=== PATIENT | male | born 1955 | race Caucasian/White ===

== ENCOUNTER → 2017-01-03 | Outpatient (CLI) | payer BC, OTHER ==
[~2017-01-03] VITALS: Ht 170.2 cm; Wt 68.0 kg
[~2017-01-03] MED LIST: ALEVE220 MG PO; ATENOLOL 100MG100 MG PO; ATENOLOL 50 MG50 M1 PO; ATENOLOL 50MG T50 M1 PO; CIPRO500 MG PO; CLARITIN10 M2 PO; FLAX SEED OIL1000 MG PO; HYDROCODONE-AP1 EAC6 PO; IBUPROFEN 200200 M1 PO; IBUPROFEN 800800 M1 PO; MULTIVITAMINS PO; MULTIVITAMINS1 EAC7 PO; NABUMETONE 750750 M1 PO; NORCO 5-325 TA1 EACH PO; PERCOCET 7.5-31 EACH PO; WELLBUTRIN 100100 MG PO; WELLBUTRIN XL150 MG PO; ZOFRAN ODT4 MG PO; ZOFRAN4 MG PO
--- NOTE | ~2017-01-03 | HPC ---
[facility] [address] [place] [address] PAIN MANAGEMENT CONSULTATION Name: RAVIN ANDRES Room #: REG MELITON Goss#: [id number] Admission: 01/03/17 Attend Phys: Clifton Figueredo DO Discharge: Date of : 54 Report #: [id number] THIS REPORT FOR: //name// CC: Amanda Figueredo The patient is a very pleasant 61-year-old gentleman well known to pain clinic, being treated for lumbar radiculopathy status post decompressive laminectomy, ongoing radicular pain requiring complex medication management. He has done well with occasional epidural injections, left L5-S1 transforaminal epidural injection prior visit (11/15/2016) afforded 35% relief, the pain recurred. Prior transforaminal injections had afforded much better relief. With the patient starting to fail further interventional therapy, we talked about therapeutic options moving forward. He has had significant decompression at L5-S1. MRI from 2012 notes reversal lordotic curve. Posterior bone graft material identified along the posterior at L3-L4, some bulging disk at multiple levels, neural foraminal narrowing predominantly in the left affecting the left L4 nerve root, remote compression deformity at L3 and no acute compression fractures noted . Today, he notes pain, primarily low back, left leg, exacerbated with standing and walking. Stands in any position 45 minutes too long, pain becomes problematic. PHYSICAL EXAMINATION: Shows 62-year-old gentleman appearing younger than stated age. BMI is 23.5 kilograms per meter squared. Vital signs are stable. He uses his Percocet fairly rarely, but he is loathe. He did use higher doses. He has been taking actually cod liver tablet p.r.n. and now he is up to maybe 1 tablet a day. We talked about therapeutic options including spinal cord stimulator which patient is very enthusiastic with about moving forward with. He had read some promotional information on stimulators and local publications. We talked at length today about spinal cord stimulator as possible therapeutic option for people who has failed 1 back surgery and who have ongoing neuropathic pain components. I have gave him both printed and video literature regarding this therapeutic modality. The patient has reasonable strength in lower legs, no specific traumatic weakness. I think he would be an excellent candidate for spinal cord stimulator. Given that pain remains problematic; however, we elected to proceed today with a caudal epidural injection under fluoroscopy. If this does not afford adequate relief, our last option will be spinal cord stimulator. The patient was given contact information for psychological evaluation as required by most third libertarian payers. ASSESSMENT: Symptomatic lumbar radiculopathy status post decompressive laminectomy, fusion with ongoing neuropathic pain, lumbar radicular symptoms. He has had excellent relief following transforaminal epidural injections, starting to lose efficacy. We will trial 1 caudal injection today. If this [address] [address] PAIN MANAGEMENT CONSULTATION Name: MCKENNARAVIN Lizeth Room #: ANDI Goss#: [id number] Admission: 01/03/17 Attend Phys: Clifton Figueredo DO Discharge: Date of : 54 Report #: [id number] does not afford adequate relief, we will move forward with spinal cord stimulator trial. He is loathe to take higher dose of opiates. He takes 7.5/325 Percocet tablet, usually taking about half a tablet b.i.d. to t.i.d. PROCEDURE: Symptomatic lumbar radiculopathy by caudal approach. DESCRIPTION OF PROCEDURE: After written informed consent was obtained, the patient was taken to the fluoroscopy suite and placed in prone position. After sterile prep and drape, skin wheal was raised. A 22-gauge stylet needle was placed to the sacral hiatus in the caudal epidural space. Negative aspiration was accomplished. A 1 mL of Omnipaque was injected, which showed spread in the sacral caudal space. This was followed with 80 mg triamcinolone plus 4 mL of 0.5% preservative-free lidocaine. Progreso removed. The area was cleansed, Band-Aids applied. The patient monitored for an appropriate period of time, discharged in good and stable condition. By: [id number] Clifton Figueredo DO /nt
[2017-01-03 10:45] VITALS: BP 123/80
== END | disposition home or self-care (01) ==
LOC: PAIN 07:37
DX: M54.16 Radiculopathy, lumbar region (principal); G62.9 Polyneuropathy, unspecified

== ENCOUNTER → 2017-02-24 | Outpatient (CLI) | payer BC, OTHER ==
[~2017-02-24] VITALS: Ht 170.2 cm; Wt 66.0 kg
--- NOTE | ~2017-02-24 | HPC ---
[facility] [place] [address] PAIN MANAGEMENT CONSULTATION Name: RAVIN ANDRES Room #: REG [facility] Ana Paula#: [id number] Admission: 02/24/17 Attend Phys: Clifton Figueredo DO Discharge: Date of : 54 Report #: [id number] THIS REPORT FOR: //name// CC: Clifton Figueredo DATE OF SERVICE: 02/24/2017 The patient is a 62-year-old gentleman being treated for symptomatic lumbar radiculopathy, status post lumbar decompressive laminectomy with component of axial back pain. The patient has had some incremental relief with injections. The left L5-S1 transforaminal epidural injection 11/15/2016 afforded about 35% relief. I trialed 1 caudal injection at last visit with again about 30% overall improvement. The patient continues to take Percocet fairly rarely, literally 1/4 of a 7.5 mg tablet 2-3 times a day. He has been authorized for spinal cord stimulator trial, we are working to get a mutually convenient date. Returns to the pain clinic today. Again, noting the prior intervention really only afforded about 30% relief. Pain is pretty good at present about 2/10, but if he sits for too long greater than 30-45 minutes, pain becomes quite problematic, radiating down the left leg and requires him to get up and move around. 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 Blood pressure is 151/87, pulse 74, respirations are 14, BMI is 22.8 kilograms per meter squared. Alert and oriented to person, place and time, judged to be a reasonable historian. Rises from chair using armrest. Modestly antalgic gait favoring the left leg. Positive straight leg raise on the left. Fortunately, strength is generally preserved. ASSESSMENT: Symptomatic lumbar radiculopathy status post decompressive laminectomy requiring complex medication management of axial back pain. RECOMMENDATIONS: Renew Percocet 7.5/325. Again, fairly rare use up to 1/4 of a tablet p.r.n. pain. Taken the liberty of writing for 75 tablets, which typically lasts about 90 days. Again, follow up at earliest possible day for spinal cord stimulator trial. Will trial Bloominous device; high frequency and MRI compatible. By: [id number] Clifton Figueredo DO /nt
[2017-02-24 09:47] VITALS: BP 151/87
== END | disposition home or self-care (01) ==
LOC: PAIN 02-21 15:28
DX: M54.16 Radiculopathy, lumbar region (principal); I10 Essential (primary) hypertension; G45.9 Transient cerebral ischemic attack, unspecified; F17.200 Nicotine dependence, unspecified, uncomplicated; Z98.890 Other specified postprocedural states; Z79.899 Other long term (current) drug therapy; Z88.8 Allergy status to other drugs, medicaments and biological substances

== ENCOUNTER → 2017-04-14 | Outpatient (CLI) | payer BC, OTHER ==
[~2017-04-14] VITALS: Ht 170.2 cm; Wt 64.9 kg
[~2017-04-14] MED LIST changes: +CLARITIN10 MG PO; +FLOMAX0.4 MG PO; +MUCINEX TA600 MG/TA2 PO
--- NOTE | ~2017-04-14 | HPC ---
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 He is not a further surgical candidate at this point. We had discussed spinal cord stimulator as a possible therapeutic modality to help manage symptoms and improve functional ability. The patient presents to pain clinic today for spinal cord stimulator trial. After written informed consent was obtained including risk of spinal cord trauma, increased pain, weakness, bleeding, and infection, the patient wished to proceed. Intravenous access was established. The patient was given 1 gram of Ancef, taken to the fluoroscopy suite, placed in prone position with appropriate abdominal bolstering. Wide surgical prep and drape was accomplished. Skin wheal with Xylocaine was raised. A #11 scalpel was used to make a stab incision. A 14-gauge epidural Tuohy needle was placed into the interspinous ligament at T12-L1. Stylet was removed, saline filled glass syringe was attached with continuous plunger pressure. On biplanar fluoroscopy, the needle was easily advanced to the epidural space. Negative aspiration for cerebrospinal fluid or blood. A 16 contact trial lead, 50 cm was advanced in the posterior aspect of the epidural canal to the top of T7 vertebral body. Attention was then directed at the left side, again a skin wheal with Xylocaine was raised. A #11 scalpel was used to make a stab incision and a 14-gauge epidural Tuohy needle was placed into the interspinous ligament at T12-L1. With identical process, second lead was advanced to the top of T7 parallel to the first lead. AP and lateral projections showed good needle placement. With fluoroscopy, observing the lead tips, the stylet and needles were removed. Tips remained intact. The leads were secured using mastic and Steri-Strips. Wide bolster dressing was accomplished. Care was taken as the patient has a contact skin allergy to have least amount of adhesive on his skin. The patient was allowed to ambulate to the recovery room, discussed stimulation patterns with the [employer] rep. We will plan on moving forward with lead evaluation in 1 week. He has contact information for the pain clinic physician mobile web application developer if he has any change in symptoms, weakness, fever, chills, drainage at the insertion site. If the patient has improved functional status, we will move forward with MRI compatible spinal cord stimulator with paddle lead placement. [address] [address] PAIN MANAGEMENT CONSULTATION Name: MCKENNARAVINNAOMI CLEARY Room #: REG MELITON Goss#: [id number] Admission: 04/14/17 Attend Phys: Clifton Figueredo DO Discharge: Date of : 54 Report #: [id number] The patient was discharged in good and stable condition. <ELECTRONICALLY SIGNED> By: Clifton Figueredo DO 04/14/1717 1 0849 Clifton Figueredo DO /nt
[2017-04-14 07:20] VITALS: BP 128/86
== END | disposition home or self-care (01) ==
LOC: PAIN 06:40
DX: M54.16 Radiculopathy, lumbar region (principal); G89.29 Other chronic pain; I10 Essential (primary) hypertension; F17.200 Nicotine dependence, unspecified, uncomplicated; Z86.73 Personal history of transient ischemic attack (TIA), and cerebral infarction without residual deficits; Z88.8 Allergy status to other drugs, medicaments and biological substances; Z98.890 Other specified postprocedural states; Z79.899 Other long term (current) drug therapy

== ENCOUNTER → 2017-04-21 | Outpatient (CLI) | payer BC, OTHER ==
[~2017-04-21] VITALS: Ht 170.2 cm; Wt 67.0 kg
--- NOTE | ~2017-04-21 | HPC ---
[facility] [address] [place] [address] PAIN MANAGEMENT CONSULTATION Name: RAVIN ANDRES Room #: REG MELITON Smith.#: [id number] Admission: 04/21/17 Attend Phys: Delroy Hernandez MD Discharge: Date of : 54 Report #: [id number] THIS REPORT FOR: //name// CC: Adam Ferris DO DATE OF SERVICE: 04/21/2017 The patient returns to pain clinic today in followup for his spinal cord stimulator trial. Two leads were placed by Dr. Clifton Figueredo on 04/14/2017. His trial was performed with the use of a Granular Infinion 16 compact trial leads. The procedure went well with good lead placement location. The patient reports today that he has had 85-90% reductions in pain overall during the week. His activities have been improved by 90%. He has been able to play with his grandchildren, spend more time on his feet and do other household activities with little to no pain. On the spectrum of response, I would say that this is an excellent trial, which was sustained throughout the entire week. The patient is anxious to proceed with a permanent implant and we have discussed a referral to Dr. Goodrich for placement of permanent lead and pulse generator. A referral has been made to his office and the radiographs as well as Dr. Figueredo's dictations plus our evaluation from today will be sent to Dr. Goodrich's office, so that they can schedule him for an implant in the upcoming weeks. The patient had a number of questions, which were answered about the trial as well as the upcoming implant. Further surgical discussion, we will defer to Dr. Goodrich. The leads were removed without difficulty and site looks good with no evidence of infection, although there is a little bit of tape excoriation just lateral to the left lead. Skin was cleaned. Band-Aid was placed over the open skin area and he was discharged from the clinic with Dr. Goodrich's contact information. By: [id number] Delroy Hernandez MD /nt
[2017-04-21 10:46] VITALS: BP 142/87
== END | disposition home or self-care (01) ==
LOC: PAIN 07:23
DX: Z46.2 Encounter for fitting and adjustment of other devices related to nervous system and special senses (principal); G89.29 Other chronic pain; M54.5 Low back pain; I10 Essential (primary) hypertension; F17.210 Nicotine dependence, cigarettes, uncomplicated; Z86.73 Personal history of transient ischemic attack (TIA), and cerebral infarction without residual deficits; Z88.8 Allergy status to other drugs, medicaments and biological substances; Z79.899 Other long term (current) drug therapy; Z98.890 Other specified postprocedural states

== ENCOUNTER → 2017-05-25 | Outpatient (CLI) | payer BC, OTHER ==
[~2017-05-25] VITALS: Ht 170.2 cm; Wt 65.0 kg
--- NOTE | ~2017-05-25 | HPC ---
[facility] [place] [address] PAIN MANAGEMENT CONSULTATION Name: RAVIN ANDRES Room #: REG [facility] SarahRadha#: [id number] Admission: 05/25/17 Attend Phys: Chris Salazar MD Discharge: Date of : 54 Report #: [id number] THIS REPORT FOR: //name// CC: Chris Anna DO DATE OF SERVICE: 05/25/2017 FOLLOWUP COMPLAINT: Here for medication renewal. 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 Has a history of decompressed laminectomies and continues to have neuropathic pain. He is taking oxycodone 7.5 mg 1 p.o. t.i.d. and has returned for renewal of this medication. PHYSICAL EXAMINATION: Blood pressure 124/77, pulse 70, respiratory rate 16, room air saturation 97%. Height 5 feet 7 inches, weight 143 pounds, BMI is 22. The patient has not fallen since we saw him last. The patient rates his pain as a 4/10. He notes some increased discomfort when he sits for too long. IMPRESSION: History of lumbar radiculopathy status post laminectomy with neuropathic pain. RECOMMENDATION: We will renew the patient's medications. A script for Percocet 7.5/325 has been provided. The patient will follow up with Dr. Figueredo in the near future. We would like to thank you for letting us participate in his care. We hope he continues to improve. By: [id number] Chris Salazar MD /CHARLIE
[2017-05-25 09:49] VITALS: BP 124/77
== END | disposition home or self-care (01) ==
LOC: PAIN 05-19 07:35
DX: M54.16 Radiculopathy, lumbar region (principal); Z98.890 Other specified postprocedural states; Z79.899 Other long term (current) drug therapy; F17.200 Nicotine dependence, unspecified, uncomplicated

== ENCOUNTER → 2017-09-12 | Outpatient (CLI) | payer BC, OTHER ==
[~2017-09-12] VITALS: Ht 170.2 cm; Wt 64.9 kg
[~2017-09-12] MED LIST changes: +ETODOLAC 400 M400 M1 PO; +PERCOCET PO
--- NOTE | ~2017-09-12 | HPC ---
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 He uses hydrocodone 5/325 infrequently, his last Percocet 5/325 prescription for 90 tablets was in July. He still has a few tablets left. At last visit, we had had the [employer] customer solutions representative come and make some changes on his stimulator, which was ultimately implanted on 05/22/2017. The patient returns today noting pain is 2 on a VAS. He is using his stimulator daily, but not 100% of the time. He charges is it every 2-3 days. He notes his functional status is dramatically improved with the stimulator. He is using Percocet on a nondaily basis. He rates his subjective pain score 2 on a VAS. Notes pain is primarily low back, left leg, sharp, aching; exacerbated with standing and walking; again gets good relief with repositioning changing the stimulator and rarely taking Percocet. PHYSICAL EXAMINATION: Shows a pleasant 62-year-old gentleman, BMI is 22.4 kilograms per meter squared. Vital signs stable. Rises from chair easily. Gait is tandem. Lower extremity strength is preserved. Lumbar flexion is significantly limited to about 60-70 degrees, though the patient states this is chronic since he was a teenager. ASSESSMENT: Symptomatic lumbar radiculopathy status post decompressive laminectomy, axial back pain requiring high risk complex medication management. RECOMMENDATIONS: We reviewed the fact that opiate medications are being used to provide analgesia adequate to support activities of daily living, not attempting to achieve a specific pain score on the 0-10 Visual Analog Scale. The current opiate medications are providing sufficient analgesia to allow the patient to participate in activities of daily living. The patient is not exhibiting any aberrant behavior suggestive of drug diversion. The patient is not having any adverse reactions to medications. The patient is not suffering from daytime somnolence or mental acuity changes. The patient is managing opiate-induced constipation with appropriate zjbj-yti-jygusek agents and dietary considerations. The patient was counseled on concern for caution with operating a motor vehicle while using opiate medications. A physical exam was performed and the patient's functional status was evaluated. All patients with back pain were advised against the bed rest greater than 4 days and were advised to return to normal activities. Pain score assessment was noted and the treatment plan was reviewed with the patient. All current [address] [address] PAIN MANAGEMENT CONSULTATION Name: MCEKNNARAVIN VELAZQUEZERY Room #: REG [facility] Ana Paula#: [id number] Admission: 09/12/17 Attend Phys: Clifton Figueredo DO Discharge: Date of : 53 Report #: [id number] medications, both prescribed and OTC were reviewed and reconciled on the electronic medical record. Tobacco screening was accomplished and smoking cessation was advised when indicated. BMI was noted and diet/exercise modification was recommended for all patients following outside normal parameters. I reviewed with the patient today their responsibilities to safeguard prescription medications, reviewed their responsibility to utilize medications only as prescribed by the physician. They are to seek and receive pain medications only from 1 physician group ( [facility]). They are to use 1 pharmacy and keep the clinic informed if they change pharmacies. Their responsibilities include making followup visits in a timely fashion and to avoid abrupt discontinuation of medication usage. Their responsibilities further include bringing their medications (bottles from the pharmacy with residual pills) to the visit for possible confirmation of pill counts and the patient understands it is their responsibility to submit to random drug screens to ensure both that the medications prescribed are present, and that no other controlled substances are present. All prescriptions provided today were generated electronically. Renew [employer] , dispense 75 tablets. The patient uses this on a nondaily basis. Continue spinal cord stimulator usage. Follow up simply as needed. <ELECTRONICALLY SIGNED> By: Clifton Figueredo DO 09/15/17 1022 [id number] Clifton Figueredo DO /nt
[2017-09-12 13:28] VITALS: BP 130/77
== END ==
LOC: PAIN 06:56
DX: M54.16 Radiculopathy, lumbar region (principal); M54.89 Other dorsalgia; Z98.890 Other specified postprocedural states; Z79.899 Other long term (current) drug therapy

== ENCOUNTER → 2017-10-17 | Outpatient (CLI) | payer BC, OTHER ==
[~2017-10-17] VITALS: Ht 170.2 cm; Wt 64.0 kg
--- NOTE | ~2017-10-17 | HPC ---
[facility] [place] [address] PAIN MANAGEMENT CONSULTATION Name: MCKENNARAVIN CLEARY Room #: REG [facility] Ana Paula#: [id number] Admission: 10/17/17 Attend Phys: Clifton Figueredo DO Discharge: Date of : 54 Report #: [id number] THIS REPORT FOR: //name// CC: Clifton Figueredo DATE OF SERVICE: 10/17/2017 HISTORY OF PRESENT ILLNESS: The patient is a 62-year-old gentleman, prior seen in the pain clinic on 09/12/2017 for symptomatic lumbar radiculopathy status post decompressive laminectomy, axial back pain requiring complex medication management. Spinal cord stimulator ([employer]) was evaluated at last visit. Function is good. In the interval since we last saw him on 09/12/2017, the patient had seen an orthopedic surgeon. Hip x-ray showed no obvious arthritic changes, though he did have some fluid in the trochanteric bursa, was given injections and physical therapy and started on etodolac 400 mg b.i.d. Returns to the pain clinic today noting that overall symptoms are generally improved, specifically with the etodolac. Rates his pain fairly nominal of 1 on a VAS, although he notes that he is scheduled to stop the etodolac next week. I had given him a prescription for Percocet 5/325, limit 75 tablets, 09/12/2017. He is using 1 tablet 3-4 times a week. The patient notes pain is primarily low back, left greater than right hip and leg, though again fairly nominal at present. He states he actually feels better than he has in some time. PHYSICAL EXAMINATION: GENERAL: Shows a 62-year-old gentleman, BMI is noted on EMR; does not fall outside of recommended parameters. VITAL SIGNS: Stable. MUSCULOSKELETAL: Rises from chair fairly easily. Gait is tandem. Diffuse tenderness across the low back and hips, though radicular symptoms are fairly nominal at this time. Lower extremity strength is preserved. Today, we did review an opiate consent to treat contract. I pointed out that as the patient starts to wean off etodolac, he may have some increase in pain. I did renew Percocet 5/325, limit 75 tablets; he can take 1 tablet up to 3 or 4 times a day, though typically again he is taking 3 or 4 tablets in a week. Suggested that as he weans off etodolac and if symptoms become more problematic that he talk to his superintendent general physician and request renewal of the etodolac. Did suggest, however, that given a general risk with NSAID type agents and cardiac risk factors, he may consider taking the etodolac on a nondaily basis and continue to use the Percocet simply on a p.r.n. basis as needed for breakthrough pain. We reviewed the opiate consent to treat contract. [address] [address] PAIN MANAGEMENT CONSULTATION Name: MCKENNARAVIN CLEARY Room #: REG MELITON Goss#: [id number] Admission: 10/17/17 Attend Phys: Clifton Figueredo DO Discharge: Date of : 53 Report #: [id number] We reviewed the fact that opiate medications are being used to provide analgesia adequate to support activities of daily living, not attempting to achieve a specific pain score on the 0-10 Visual Analog Scale. The current opiate medications are providing sufficient analgesia to allow the patient to participate in activities of daily living. The patient is not exhibiting any aberrant behavior suggestive of drug diversion. The patient is not having any adverse reactions to medications. The patient is not suffering from daytime somnolence or mental acuity changes. The patient is managing opiate-induced constipation with appropriate clfa-sct-wegzqfw agents and dietary considerations. The patient was counseled on concern for caution with operating a motor vehicle while using opiate medications. A physical exam was performed and the patient's functional status was evaluated. All patients with back pain were advised against the bed rest greater than 4 days and were advised to return to normal activities. Pain score assessment was noted and the treatment plan was reviewed with the patient. All current medications, both prescribed and OTC were reviewed and reconciled on the electronic medical record. Tobacco screening was accomplished and smoking cessation was advised when indicated. BMI was noted and diet/exercise modification was recommended for all patients following outside normal parameters. I reviewed with the patient today their responsibilities to safeguard prescription medications, reviewed their responsibility to utilize medications only as prescribed by the physician. They are to seek and receive pain medications only from 1 physician group ( [facility]). They are to use 1 pharmacy and keep the clinic informed if they change pharmacies. Their responsibilities include making followup visits in a timely fashion and to avoid abrupt discontinuation of medication usage. Their responsibilities further include bringing their medications (bottles from the pharmacy with residual pills) to the visit for possible confirmation of pill counts and the patient understands it is their responsibility to submit to random drug screens to ensure both that the medications prescribed are present, and that no other controlled substances are present. All prescriptions provided today were generated electronically. ASSESSMENT: Symptomatic lumbar radiculopathy status post decompressive laminectomy, axial back pain, stable on modest dose opiate analgesic. <ELECTRONICALLY SIGNED> By: Clifton Figueredo DO 10/19/17 0724 [id number] Clifton Figueredo DO /jose
[2017-10-17 13:20] VITALS: BP 163/71
== END ==
LOC: PAIN 06:53
DX: M54.16 Radiculopathy, lumbar region (principal); Z98.890 Other specified postprocedural states; F11.90 Opioid use, unspecified, uncomplicated

== ENCOUNTER → 2017-12-05 | Outpatient (CLI) | payer BC, OTHER ==
[~2017-12-05] VITALS: Ht 170.2 cm; Wt 65.8 kg
--- NOTE | ~2017-12-05 | HPC ---
[facility] [place] [address] PAIN MANAGEMENT CONSULTATION Name: RAVIN ANDRES Room #: REG [facility] Ana Paula#: [id number] Admission: 12/05/17 Attend Phys: Clifton Figueredo DO Discharge: Date of : 53 Report #: [id number] THIS REPORT FOR: //name// CC: Clifton Figueredo The patient is a 62-year-old gentleman being treated for lumbar radiculopathy status post decompressive laminectomy, axial back pain, requiring complex medication management. Last seen in pain clinic on 10/17/2017. We progressed to spinal cord stimulator trial, this was successful and he had an implantation of a [employer] stimulator in July. He returns to pain clinic today. He is doing dramatically better. He has had 3 failed back surgeries, ongoing axial back and left radicular pain, though he notes his pain is a 1 on a VAS. He is taking oxycodone on a nondaily basis, Percocet 5/325, last prescription for 75 tablets on 10/17, he still has a few tablets left. He returns to pain clinic today. He notes subjective pain score is 1 on a VAS. He uses stimulator daily, charges it once or twice a week, usually takes him about 2 hours to charge. He states he uses oxycodone 2 or 3 times a week. PHYSICAL EXAMINATION: Shows 62-year-old gentleman, BMI is 22.7 kilograms per meter squared. Vital signs are stable as noted in the EMR. Lumbar flexion is limited to 80 degrees. Does have a modestly antalgic gait. Significant decreased left dorsiflexion strength. Otherwise, strength is pretty symmetric. Straight leg raise is negative. We reviewed the fact that opiate medications are being used to provide analgesia adequate to support activities of daily living, not attempting to achieve a specific pain score on the 0-10 Visual Analog Scale. The current opiate medications are providing sufficient analgesia to allow the patient to participate in activities of daily living. The patient is not exhibiting any aberrant behavior suggestive of drug diversion. The patient is not having any adverse reactions to medications. The patient is not suffering from daytime somnolence or mental acuity changes. The patient is managing opiate-induced constipation with appropriate [id number]-vdivcyp agents and dietary considerations. The patient was counseled on concern for caution with operating a motor vehicle while using opiate medications. A physical exam was performed and the patient's functional status was evaluated. All patients with back pain were advised against the bed rest greater than 4 days and were advised to return to normal activities. Pain score assessment was noted and the treatment plan was reviewed with the patient. All current medications, both prescribed and OTC were reviewed and reconciled on the electronic medical record. Tobacco screening was accomplished and smoking cessation was advised when indicated. BMI was noted and diet/exercise [address] [address] PAIN MANAGEMENT CONSULTATION Name: RAVIN ANDRES [id number] Admission: 12/05/17 Attend Phys: Clifton Figueredo DO Discharge: Date of : 53 Report #: [id number] modification was recommended for all patients following outside normal parameters. I reviewed with the patient today their responsibilities to safeguard prescription medications, reviewed their responsibility to utilize medications only as prescribed by the physician. They are to seek and receive pain medications only from 1 physician group ( [facility]). They are to use 1 pharmacy and keep the clinic informed if they change pharmacies. Their responsibilities include making followup visits in a timely fashion and to avoid abrupt discontinuation of medication usage. Their responsibilities further include bringing their medications (bottles from the pharmacy with residual pills) to the visit for possible confirmation of pill counts and the patient understands it is their responsibility to submit to random drug screens to ensure both that the medications prescribed are present, and that no other controlled substances are present. All prescriptions provided today were generated electronically. ASSESSMENT: Symptomatic lumbar radiculopathy, axial back pain status post decompressive laminectomy x 3 and stable neuropathic pain, requiring complex medication management. RECOMMENDATIONS: Renew Percocet 5/325, taken the liberty of writing for 75 tablets. This should last several months. Follow up on as needed basis. By: [id number] Clifton Figueredo DO /nt
[2017-12-05 12:51] VITALS: BP 122/69
== END ==
LOC: PAIN 07:22
DX: M54.16 Radiculopathy, lumbar region (principal); M96.1 Postlaminectomy syndrome, not elsewhere classified; Z79.899 Other long term (current) drug therapy